=== PATIENT | male | born 1990 | race Caucasian/White ===

== ENCOUNTER 2017-12-05 15:12 | Emergency (ER) | payer SELFPAY ==
[2017-12-05] MEDS ORDERED: Bacitracin Oint 1 GM U/D Packet TOP ONE (16:19)
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
== END 2017-12-05 16:54 | disposition home or self-care (01) ==
LOC: JP.ED 15:12
DX: S40.811A Abrasion of right upper arm, initial encounter (principal); S40.812A Abrasion of left upper arm, initial encounter; S80.812A Abrasion, left lower leg, initial encounter; F17.210 Nicotine dependence, cigarettes, uncomplicated; V86.99XA Unspecified occupant of other special all-terrain or other off-road motor vehicle injured in nontraffic accident, initial encounter
CPT/HCPCS: 99283

== ENCOUNTER 2024-05-08 19:36 | Emergency (ER) | payer SELFPAY ==
[2024-05-08] MEDS ORDERED: Sodium Chloride 0.9% 10 ML Syringe FLUSH PRN (20:20)
[2024-05-08 20:40] LABS: BASOPHILS ABSOLUTE AUTO 0.06 K/uL (0.00-0.10); BASOPHILS PERCENT AUTO 0.7 % (0.1-1.3); EOSINOPHILS ABSOLUTE AUTO 0.21 K/uL (0.00-0.40); EOSINOPHILS PERCENT AUTO 2.3 % (0.0-5.4); HEMATOCRIT 41.7 % (38.4-49.7); HEMOGLOBIN 14.9 g/dL (12.9-16.9); IMMATURE GRAN ABSOLUTE AUTO 0.03 K/uL (0.00-0.23); IMMATURE GRAN PERCENT AUTO 0.3 % (0.0-0.7); LYMPHOCYTES ABSOLUTE AUTO 1.28 K/uL (0.8-3.3); LYMPHOCYTES PERCENT AUTO 13.9 % (11.4-47.7); MEAN CORPUSCULAR HEMOGLOBIN 31.9 pg (31.6-35.5); MEAN CORPUSCULAR HGB CONC 35.7 g/dL (31.6-35.5); MEAN CORPUSCULAR VOLUME 89.3 fL (81.4-99.0); MONOCYTES ABSOLUTE AUTO 0.74 K/uL (0.20-0.90); MONOCYTES PERCENT AUTO 8.1 % (3.3-12.6); NEUTROPHILS ABSOLUTE AUTO 6.87 K/uL (1.0-7.6); NEUTROPHILS PERCENT AUTO 74.7 % (40.0-78.1); PLATELET COUNT,PLT 235 K/uL (130-375); RED BLOOD CELL COUNT 4.67 M/uL (4.14-5.76); WHITE BLOOD CELL COUNT,WBC 9.2 K/uL (3.2-11.0)
[2024-05-08 21:00] LABS: INR 1.1; PTT,PARTIAL THROMBOPLSTIN TIME 27.2 sec (21.8-27.3)
[2024-05-08 21:04] LABS: A/G RATIO 1.3 (1.2-2.2); ALANINE AMINOTRANSFERASE,ALT 57 U/L (12-78); ALKALINE PHOSPHATASE 71 U/L (46-116); ASPARTATE AMNIOTRANSFERASE,AST 48 U/L (15-37); BILIRUBIN TOTAL 0.5 mg/dL (0.2-1.0); BLOOD UREA NITROGEN,BUN 9 mg/dL (7-18); CALCIUM 9.6 mg/dL (8.5-10.1); CARBON DIOXIDE,CO2 27 mmol/L (21-32); CHLORIDE,CL 107 mmol/L (100-108); EST CRCL DRUG DOSING (CG) 117.48 mL/min; ESTIMATED GFR 103 mL/min (>60); GLUCOSE RANDOM 103 mg/dL (74-106); POTASSIUM,K 3.2 mmol/L (3.6-5.2); PROTEIN TOTAL,TP 7.1 g/dL (6.4-8.2); SODIUM,NA 144 mmol/L (140-148); TROPONIN I HIGH SENSITIVITY 4.6 pg/mL (<=60.3)
[2024-05-08 21:07] LABS: ANION GAP 13.2 mmol/L (5.0-14.0)
[2024-05-08] MEDS: Sodium Chloride 0.9% 60 ML IV SCH (21:12)
[2024-05-08] MEDS: Sodium Chloride 0.9% 10 ML Syringe FLUSH ONE (21:12)
[2024-05-08] MEDS: Iopamidol 612 MG/ML 100 ML Bottle IV SCH (21:12)
== END 2024-05-08 22:51 | disposition home or self-care (01) ==
LOC: JP.ED 19:36
DX: K92.0 Hematemesis (principal); F17.210 Nicotine dependence, cigarettes, uncomplicated
CPT/HCPCS: 36415; 74177; 80053; 83605; 83690; 84484; 85025; 85610; 85730; 99284; J3490; Q9967